=== PATIENT | female | born 1980 | race Caucasian/White ===

== ENCOUNTER → 2024-01-09 08:10 | Outpatient (REF) | payer BC, SELFPAY | LOC: WDC 08:10 | PROVIDERS: ATTENDING PHYSICIAN Family Medicine | DX: Z12.31 Encounter for screening mammogram for malignant neoplasm of breast (principal) | CPT/HCPCS: 77063; 77067 ==

== ENCOUNTER → 2025-02-07 08:03 | Outpatient (REF) | payer BC, SELFPAY | LOC: WDC 08:03 | PROVIDERS: ATTENDING PHYSICIAN Family Medicine | DX: Z12.31 Encounter for screening mammogram for malignant neoplasm of breast (principal) | CPT/HCPCS: 77063; 77067 ==